=== PATIENT | female | born 1930 | race Caucasian/White ===

== ENCOUNTER 2021-06-08 08:14 | Day surgery (SDC) | payer OTHER, MEDICARE ==
[~2021-06-08] VITALS: Ht 162.6 cm; Wt 72.6 kg
--- NOTE | ~2021-06-08 | O ---
[facility] [place] [address] OPERATIVE REPORT Name: ALESHA KABA Room #: 150-7 [facility] M.R.#: [id number] Admission: 06/08/21 Attend Phys: Dick Del Toro MD Discharge: Date of : [birth year] Report #: [id number] THIS REPORT FOR: cc: Pallavi Padilla MD,Dick Hugo MD, MD ~ cc: Pallavi Padilla MD, Papa Talamantes DATE OF SERVICE: 06/08/2021 PRECISION AGRICULTURE SPECIALIST: None. PREOPERATIVE DIAGNOSIS: Bilateral lower lid entropion. POSTOPERATIVE DIAGNOSIS: Bilateral lower lid entropion. OPERATION PERFORMED: Bilateral lower lid entropion repair. ANESTHESIA: Local with IV sedation. COMPLICATIONS: None. INDICATIONS FOR PROCEDURE: This patient has bilateral lower lid entropion with chronic irritation and discharge. The current procedures are being undertaken in order to improve the patient's level of comfort and visual function. Informed consent was obtained to include but not limited to the loss of vision, bleeding, infection, scarring, failure to improve the problem and need for further surgery. DESCRIPTION OF OPERATION: The patient was taken to the operating room, where 2% Xylocaine with epinephrine mixed with equal parts of 0.75% Marcaine with Wydase was administered transcutaneously and transconjunctivally to each lower lid and lateral canthal area. The patient was then prepped and draped in the usual sterile fashion. A Daquan clamp was used to clamp the left lateral canthus, following which a sharp canthotomy and cantholysis were performed. Hemostasis was achieved with a monopolar cautery, as it was throughout the case. A tarsal strip was prepared laterally, removing the lash bearing portion of the redundant lid margin and the redundant tarsal plate. A transconjunctival dissection was then undertaken just inferior to the lower border of the tarsal plate. The lower lid retractors were disinserted from the inferior border of the tarsal plate. The lower lid retractors were then advanced and reattached to the anterior surface of the tarsal plate with mattress 5-0 chromic sutures passed transconjunctivally and secured in the infraciliary margin. The tarsal strip was then secured laterally with 2 interrupted 5-0 Prolene sutures. The subcutaneous structures and the skin were then closed with multiple interrupted [facility] [address] [place] [address] OPERATIVE REPORT Name: ALESHA KABA Room #: 150-7 [facility]#: [id number] Admission: 06/08/21 Attend Phys: Dick Del Toro MD Discharge: Date of : [birth year] Report #: [id number] 6-0 plain gut sutures so the lateral canthal angle was sharply reformed. The wounds were then cleaned and dressed with ophthalmic antibiotic ointment. The patient was then transported to the recovery area, having tolerated the procedure well with no anesthetic or operative complications being noted. By: 1024 Jose Miguel Del Toro MD /damaris
[~2021-06-08 08:14] MED LIST: ACETAMINOPHEN325 MG PO; ARICEPT10 M1 PO; ASA81BEC PO; CRANBERRY 12,61 EACH PO; FLOMAX0.4 MG PO; HYDRALAZINE 10M10 MG PO; HYDRALAZINE 2525 M1 PO; ISOSORBIDE DINI30 MG PO; LASIX 20 MG TAB20 MG PO; LEVEMIR FL100 UNIT/2 SUBQ; LIDODERM1 EACH TOP; LISINOPRIL20 MG PO; MILK OF MA400 MG/5 M PO; MIRALAX119 GM PO; MIRTAZAPINE7.5 MG PO; MULTI VITAMIN1 EACH PO; NAMENDA 10 MG T10 MG PO; NARCAN4 MG NARES; NEURONTIN100 MG PO; NORVASC10 MG PO; NOVOLOG FL100 UNIT/M SUBQ; PROTONIX40 M2 PO; REFRESH CLASSI1 EACH OPHTHALMIC; REGLAN 10 MG TA10 MG PO; TOPROL XL25 MG PO; TRAMADOL 50 MG50 MG PO; ZOLOFT100 MG PO
[2021-06-08 09:35] VITALS: BP 154/47
== END 2021-06-08 12:15 | disposition home or self-care (01) ==
LOC: TBA 08:14 → OR 08:14 → TBA 08:27 → OR 11:46
PROVIDERS: ATTEND Ophthalmology
DX: H02.002 Unspecified entropion of right lower eyelid (principal); H02.005 Unspecified entropion of left lower eyelid; I10 Essential (primary) hypertension; E78.5 Hyperlipidemia, unspecified; I48.91 Unspecified atrial fibrillation; Z98.890 Other specified postprocedural states; Z79.899 Other long term (current) drug therapy; Z85.828 Personal history of other malignant neoplasm of skin; E11.9 Type 2 diabetes mellitus without complications; K21.9 Gastro-esophageal reflux disease without esophagitis; Z90.710 Acquired absence of both cervix and uterus; Z79.01 Long term (current) use of anticoagulants; Z98.41 Cataract extraction status, right eye; Z88.2 Allergy status to sulfonamides; Z88.6 Allergy status to analgesic agent; Z88.8 Allergy status to other drugs, medicaments and biological substances
CPT/HCPCS: 50010; 50101; 50386; 50398; 51636; 56527; 56531; 62110; 62850; 70005